=== PATIENT | female | born 2000 | race African-American/Black ===

== ENCOUNTER 2019-05-25 07:55 | Emergency (ER) | payer MEDICAID ==
[~2019-05-25] VITALS: Ht 167.6 cm; Wt 59.0 kg
[2019-05-25 08:24] VITALS: BP 111/66
[2019-05-25 08:59] LABS: CLARITY URINE CLEAR (CLEAR); COLOR URINE YELLOW (YELLOW); KETONES URINE NEGATIVE (NEGATIVE); LEUKOCYTE ESTERASE URINE 1+ (NEGATIVE); NITRITE URINE NEGATIVE (NEGATIVE); OCCULT BLOOD URINE NEGATIVE (NEGATIVE); PH URINE 6.5 (4.5-8.0); PROTEIN URINE NEGATIVE (NEGATIVE); SPECIFIC GRAVITY URINE 1.026 (1.005-1.030)
[2019-05-29 07:11] LABS: NEISSERIA GONORRHOEAE NAA Negative (Negative)
== END 2019-05-25 09:47 | disposition home or self-care (01) ==
LOC: ER 07:55
DX: N76.0 Acute vaginitis (principal)
CPT/HCPCS: 81003; 87210; 87491; 87591; 99283